=== PATIENT | female | born 1945 | race Caucasian/White ===

== ENCOUNTER 2023-04-21 21:30 | Emergency (ER) | payer OTHER, MEDICARE, SELFPAY ==
[2023-04-21 21:37] VITALS: BP 156/79
--- NOTE | 2023-04-22 00:02 | ED.GENMED ---
History of Present Illness
General
Chief Complaint: Skin Problem
Source: patient and spouse
Time Seen by Provider: 04/21/23 23:13
Travel History
Have you had any contact with someone who has COVID-19?: No
Do you have any symptoms of coronavirus? Fever > 100 degrees, chills, cough, shortness of breath, sore throat, loss of taste or smell, muscle aches, or headache?: No
History of Present Illness
History of Present Illness:
78-year-old female presenting to the emergency department from local urgent care for evaluation after she sustained a laceration to her right lower leg when she accidentally hit her right lower extremity against her car door. Patient is unknown
last tetanus. No other injuries were sustained. Patient notes that at the urgent care they told her that the laceration was too complex and needed further emergency care.
Past History
Past History
ED Past Medical History: HTN and Hypercholesterolemia
ED Past Surgical History: Gynecological and Tonsilectomy
Social History
Tobacco: Non-smoker
Alcohol: Occasional
Drug: None
Personal:
Living: with family
Review of Systems
Review of Systems
All Other Systems: ROS reviewed and negative except as documented in HPI and ROS
Phy Exam
Physical Exam
Physical Exam:
GENERAL: Alert , in no apparent distress
EYE: conjunctiva clear
Head: Normocephalic atraumatic
NECK: Supple,
ENT: mmm.
LUNGS: no acute respiratory distress
NEUROLOGICAL: Alert and oriented
SKIN: Warm and dry, curvilinear 7 cm laceration to the anterior aspect of the right lower leg. Laceration extends into the dermal layer. There is no active bleeding. Wound is mildly gaping.
MUSCULOSKELETAL: well perfused. Cap refill less than 2 seconds. Sensation grossly intact to light touch.
PSYCH: Normal and appropriate interaction.
Scores
Heart Failure Risk
Heart Failure Risk Score: Not Applicable
Heart Score for Chest Pain Patients
STEMI patient?: Not applicable
Withdrawal Assessment of Alcohol
Withdrawal Assessment Completed?: Not applicable
Course
Orders/Labs/Results
Orders:
Orders
04/22/23 00:02
Tetanus/Diphth/Acelpertussis [Adacel] 0.5 ml IM .ONCE ONE
Vital Signs
Initial and Last Documented VS:
Initial Vital Signs
Temp Pulse BP Pulse Ox
98.4 F 72 156/79 95
04/21/23 21:37 04/21/23 21:37 04/21/23 21:37 04/21/23 21:37
Last Documented Vital Signs
Temp Pulse BP Pulse Ox
98.4 F 72 156/79 95
04/21/23 21:37 04/21/23 21:37 04/21/23 21:37 04/21/23 21:37
Procedures
Laceration Closure
Right Lower Anterior Leg:
Status of Wound: clean
Size of Wound in cm: 7
Description of Wound Edges: sharp
Preparation: cleaned with saline
Anesthesia: 1% Lidocaine with epi
Revision/Debridement: routine- no revision
Type of Closure: single layer closure
Skin Closure Material: 4-0 prolene
Number of sutures: 16
MDM/Problems Addressed
MDM/Problems Addressed:
Laceration repaired as above. There was a deeper component to the laceration along the middle portion however due to the 1 edge of the laceration being mostly the epidermal layer I was unable to perform deep sutures. Laceration was easily repaired
with multiple simple interrupted sutures as above. Given the location of the wound I provided patient with information for the wound care center for follow-up. Suture removal in 12 to 14 days. Patient advised on further wound care for home.
Aware of return precautions the ER but otherwise stable for discharge.
*Pulse Oximetry
Patient hypoxic: no
*Critical Care Note
Total Time (30-74mins, 75-104mins- exclusive of procedures): Not Applicable
ED Attending Note
-
Portions of this chart may have been created with voice recognition software.� Occasional wrong word or��sound alike� substitutions may have occurred due to the inherent limitations of voice recognition software.
Discharge Plan
Departure
Patient Disposition: Home (Routine Discharge)
Date of Disposition: 04/22/23
Time of Disposition: 00:02
Patient with high blood pressure during this ER visit?: Yes
Discharge Problem:
Laceration of lower leg, right
Instructions: Wound Care ([place]), [facility]
Prescriptions:
No Action
atorvastatin 20 mg Tablet
20 mg PO DAILY
metoprolol succinate 50 mg Tablet Extended Release 24 Hr
50 mg PO BID
Vitamin D3
1 tab PO DAILY
calcium
1 tab PO DAILY
Referrals:
Wound Care Center [Outside]
Mohamud Kan MD [Family Provider] -
Interventions
Interventions:
*Risk Screen - Suicide Last Done: 04/21/23 21:50
*General Assessment Last Done: 04/21/23 21:50
*Neglect/Abuse Screening Last Done: 04/21/23 21:50
ED- Fall Risk Assessment Last Done: 04/21/23 23:42
*ED COVID-19 Vaccine History Last Done: 04/21/23 21:50
ED-Skin Assessment Last Done: 04/21/23 23:20
[2023-04-22] MEDS: ADACEL 0.5 ML IM (00:04)
[2023-04-22 00:18] VITALS: BP 140/88
== END 2023-04-22 00:20 | disposition home or self-care (01) ==
LOC: EMR 21:30
PROVIDERS: EMERGENCY PHYSICIAN Emergency Medicine; FAMILY PHYSICIAN Internal Medicine
DX: S81.811A Laceration without foreign body, right lower leg, initial encounter (principal); W22.09XA Striking against other stationary object, initial encounter; I10 Essential (primary) hypertension; Z23 Encounter for immunization
CPT/HCPCS: 99284; 12002; 90471; 90715